=== PATIENT | female | born 1970 | race Caucasian/White ===

== ENCOUNTER → 2018-07-17 08:33 | Outpatient (CLI) | payer OTHER, SELFPAY ==
--- NOTE | 2018-07-17 | DI.MRI.S_ITS ---
PROCEDURE: MR LUMBAR SPINE WO CON INDICATIONS: LOW BACK PAIN TECHNIQUE: Noncontrast sagittal T1 spin echo and T2 fast echo, sagittal STIR, axial T1 and T2 fast spin echo through the lumbar spine. In cases with scoliosis, additional coronal T2 fast spin echo may be performed. COMPARISON: None. FINDINGS: Image quality: Excellent. Alignment and Curvature: There is normal bony alignment. Bone Marrow: Marrow is of normal overall signal. No acute vertebral body compression fractures. Spinal Cord: Conus medullaris terminates at the L1 level. Visualized cord demonstrates normal signal and size. Paraspinous Soft Tissues: No paravertebral masses. L1-L2: Slight loss of the signal. No central stenosis. No neural foraminal narrowing. No neural impingement. L2-L3: Normal appearance. L3-L4: Loss of the signal. Mild, diffuse disc bulge. No central stenosis. No neural foraminal narrowing. No neural impingement. Focal high intensity zone within the posterior annulus compatible with a fissure. L4-L5: Loss of disc space signal. Mild, diffuse disc bulge. Mild bilateral facet hypertrophy. No central stenosis. Mild bilateral neural foraminal narrowing. No neural impingement. Focal high intensity zone is noted in the posterior annulus compatible with a fissure. L5-S1: Loss of disc signal. Mild, diffuse disc bulge. Large right central disc extrusion. Extruded disc material impinges upon the traversing right S1 nerve root. Mild narrowing of the central canal. Mild bilateral facet hypertrophy. Mild bilateral neural foraminal narrowing. IMPRESSION: 1. Right central L5-S1 disc extrusion which impinges upon the right S1 nerve root. 2. Multilevel degenerative disease 3. Multilevel facet arthropathy. 4. Mild L5-S1 central canal narrowing. 5. Mild bilateral L4-L5 and L5-S1 neural foraminal narrowing. 6. L3-L4 and L4-L5 disc annulus fissures. Dictated by: Ana Blas MD, PhD on 07/17/2018 at 13:47 Approved by: Ana Blas MD, PhD on 07/17/2018 at 13:51
== END ==
PROVIDERS: PCP Family Medicine Geriatric Medicine; Visit Provider Physician Assistant
DX: M51.27 Other intervertebral disc displacement, lumbosacral region (principal); M51.36 Other intervertebral disc degeneration, lumbar region; M47.816 Spondylosis without myelopathy or radiculopathy, lumbar region; M47.817 Spondylosis without myelopathy or radiculopathy, lumbosacral region; M48.061 Spinal stenosis, lumbar region without neurogenic claudication; M48.07 Spinal stenosis, lumbosacral region
CPT/HCPCS: 72148

== ENCOUNTER → 2018-10-22 08:34 | Outpatient (CLI) | payer OTHER, SELFPAY ==
--- NOTE | 2018-10-22 | DI.MRI.S_ITS ---
PROCEDURE: MR LUMBAR SPINE WO/W CON INDICATIONS: Intervertebral disc disorders with radiculopathy TECHNIQUE: Noncontrast sagittal T1 spin echo and T2 fast spin echo, sagittal STIR, axial T1 and T2 fast spin echo through the lumbar spine. In cases with scoliosis, additional coronal T2 fast spin echo may be performed. After the administration of contrast, sagittal and axial T1 spin echo with fat saturation through the lumbar spine. COMPARISON: [facility], , MR LUMBAR SPINE WO CON, 07/17/2018, 8:47. FINDINGS: Image quality: Excellent. Alignment and curvature: There is normal bony alignment. Marrow: Marrow is of normal overall signal. No acute vertebral body compression fractures. No suspicious marrow enhancement. Spinal cord: Conus medullaris terminates at the L1 level. Visualized spinal cord demonstrates normal signal, without suspicious enhancement. Paraspinous soft tissues: No paravertebral masses or abnormal enhancement. T12-L1: Normal appearance. L1-L2: Normal appearance. L2-L3: Normal appearance. L3-L4: The disc height and disc signal are relatively well-preserved. Moderate disc bulge is seen, which is eccentric to the right. Mild facet joint hypertrophy is seen. Mild bilateral neural foraminal narrowing is seen, right worse than left. Minimal central canal narrowing is seen. When comparison is made with the prior examination, these findings are similar. L4-L5: The disc height is well-preserved. Loss of disc signal is seen at this level. There is a focal annular fissure seen posteriorly. Moderate generalized disc bulge is seen. [id number] facet hypertrophy is seen. There is moderate right-sided and mild to moderate left-sided neural foraminal narrowing seen. Mild central canal narrowing is seen. Stable from the prior study. L5-S1: Interval right hemilaminectomy changes are seen. Mild loss of disc height is seen. Loss of disc signal is seen. Mild to moderate disc bulge is seen. [id number] facet hypertrophy is seen. Within the region of the right partial discectomy, there is abnormal soft tissue seen. The majority of this tissue is enhancing, with a small focus of nonenhancing material seen along the anterior aspect of the material, as on series 8 image 30 measuring 4 mm. Moderate central canal narrowing is seen. There is moderate bilateral neural foraminal narrowing seen, right worse than left. IMPRESSION: Interval right partial discectomy with right hemilaminectomy. Within the region of the discectomy, there is enhancing throughout, which is largely attributed to scar, although there is a 4 L focus of residual/recurrent disc extrusion seen. Dictated by: Hakeem Garcia M.D. on 10/22/2018 at 10:05 Approved by: Hakeem Garcia M.D. on 10/22/2018 at 10:11
== END ==
PROVIDERS: PCP Family Medicine; Visit Provider Neurological Surgery
DX: M51.17 Intervertebral disc disorders with radiculopathy, lumbosacral region (principal); M51.16 Intervertebral disc disorders with radiculopathy, lumbar region; M48.07 Spinal stenosis, lumbosacral region; M48.061 Spinal stenosis, lumbar region without neurogenic claudication
CPT/HCPCS: 72158; A9579

== ENCOUNTER → 2018-11-24 06:46 | Outpatient (CLI) | payer OTHER, SELFPAY ==
--- NOTE | 2018-11-24 | DI.MRI.S_ITS ---
PROCEDURE: MR LUMBAR SPINE WO/W CON INDICATIONS: WORSENING BACK PAIN TECHNIQUE: Noncontrast sagittal T1 spin echo and T2 fast spin echo, sagittal STIR, axial T1 and T2 fast spin echo through the lumbar spine. In cases with scoliosis, additional coronal T2 fast spin echo may be performed. After the administration of contrast, sagittal and axial T1 spin echo with fat saturation through the lumbar spine. COMPARISON: [facility], MR, MR LUMBAR SPINE WO CON, 07/17/2018, 8:47. [facility], MR, MR LUMBAR SPINE WO/W CON, 10/22/2018, 8:53. FINDINGS: Image quality: Excellent. Alignment and curvature: There is normal bony alignment. Marrow: Marrow is of normal overall signal. No acute vertebral body compression fractures. No suspicious marrow enhancement. Spinal cord: Conus medullaris terminates at the L1 level. Visualized spinal cord demonstrates normal signal, without suspicious enhancement. Paraspinous soft tissues: No paravertebral masses or abnormal enhancement. L1-L2: Mild loss of disc signal. No significant posterior disc bulge. No central canal or foramina stenosis. L2-L3: Normal appearance. L3-L4: Preserved disc height. Mild disc desiccation. There is diffuse posterior disc bulge. A small annular fissure is present posterior centrally. The central canal is patent. No foraminal stenosis. No definitive nerve root impingement. L4-L5: Mild loss of disc height and disc desiccation. There is diffuse posterior disc bulge with disc osteophyte complex. There is posterior central annular fissure. Mild bilateral facet arthropathy. The central canal is mildly narrowed. Mild bilateral foraminal stenosis, unchanged. No definitive nerve root impingement. L5-S1: Post surgical changes related to discectomy and right hemilaminectomy. There is amorphous soft tissue with increased T2 signal and enhancement consistent with granulation tissue secondary to post surgical scarring. Within the right lateral recess, there is a sequestered disc fragment measuring 5 x 9 x 11 mm demonstrating peripheral enhancement. There is severe narrowing of the right lateral recess and impingement of the right S1 nerve root. A 4 x 7 x 6 mm oval shaped structure is seen just right of midline above the L5-S1 disc within the anterior spinal canal adjacent to the left L5 nerve root. It demonstrates hyperintense T1 and T2 signal, and no definitive post contrast enhancement. This may be a small nerve root sleeve cyst but a small sequestered disc fragment is not excluded. There is mild loss of disc height and moderate disc desiccation. There is diffuse posterior disc bulge. Mild bilateral facet arthropathy. Mild bilateral facet arthropathy. The central canal is mildly narrowed. Mild to moderate subarticular bilateral foraminal stenosis. IMPRESSION: 1. Within the right lateral recess, there is a sequestered residual or recurrent disc fragment measuring 5 x 9 x 11 mm demonstrating peripheral enhancement, which causes severe narrowing of the right lateral recess and impingement of the right S1 nerve root. 2. A 4 x 7 x 6 mm oval shaped structure is seen just right of midline above the L5-S1 disc within the anterior spinal canal. It demonstrates hyperintense T1 and T2 signal, and no definitive enhancement. This may be a small nerve root sleeve cyst or a small sequestered disc fragment. 3. Post surgical changes related to discectomy and right hemilaminectomy at L5-S1 are again noted. There is amorphous soft tissue with increased T2 signal and enhancement consistent with granulation tissue secondary to post surgical scarring. Dictated by: Kel Caballero M.D. on 11/24/2018 at 10:02 Approved by: Kel Caballero M.D. on 11/24/2018 at 10:35
== END ==
PROVIDERS: PCP Family Medicine; Visit Provider Neurological Surgery
DX: M54.5 Low back pain (principal)
CPT/HCPCS: 72158

== ENCOUNTER → 2023-07-21 09:02 | Outpatient (CLI) | payer OTHER, SELFPAY ==
--- NOTE | 2023-07-21 09:24 | DI.MRI.S_ITS ---
PROCEDURE: MR SHOULDER RT WO CON INDICATIONS: Pain in right shoulder TECHNIQUE: Noncontrast oblique coronal T2 fast spin echo with fat saturation, oblique sagittal T1 spin echo and T2 fast spin echo with fat saturation, axial T1 spin echo and T2 fast spin echo with fat saturation through the shoulder. COMPARISON: None. FINDINGS: Image quality: Excellent. Rotator cuff: Low-grade articular and bursal surface partial thickness tear involving distal supraspinatus at its insertion on the humeral head extending to musculotendinous junction. Distal infraspinatus tendinosis is noted. The subscapularis tendon is intact. No full-thickness rotator cuff tendon rupture. Sagittal images demonstrate no significant rotator cuff muscle atrophy. Bones and bursae: No bone marrow contusions or fractures. Mild to moderate acromioclavicular joint osteoarthritic changes are seen with joint space narrowing and downward osteophyte formation depressing the musculotendinous junction of supraspinatus. Moderate glenohumeral joint osteoarthritic changes also seen with significant joint space narrowing, subchondral sclerosis and subcortical cystic changes. The acromion demonstrates conventional anatomy, without an os acromiale. Small to moderate amount of joint effusion and subacromial subdeltoid bursal fluid is seen. No gross loose bodies. Capsule and soft tissues: There is signal abnormality and contour irregularity involving superior anterior labrum at 12 to 1 o'clock position suggestive of superior anterior labral tear. The long head of the biceps tendon demonstrates normal location and morphology. The rotator interval appears normal, without fibrosis. The coracohumeral ligament is normal in thickness. IMPRESSION: 1. Low-grade articular and bursal surface partial thickness tear involving distal supraspinatus extending to musculotendinous junction. Distal infraspinatus tendinosis. No full-thickness rotator cuff tendon rupture. No significant rotator cuff muscle atrophy. 2. [id number]-um-[id number] acromioclavicular joint osteoarthritis. Moderate glenohumeral joint osteoarthritis. No fracture or dislocation. Small to moderate amount of joint effusion and subacromial subdeltoid bursal fluid. No gross loose bodies. 3. Suggestion of focal labral tear at 12 to 1 o'clock position. Dictated by: Jose Traylor M.D. on 07/21/2023 at 10:44 Approved by: Jose Traylor M.D. on 07/21/2023 at 10:48
== END ==
PROVIDERS: PCP Nurse Practitioner Family; Referring Provider Nurse Practitioner Family; Visit Provider Nurse Practitioner Family
DX: M75.111 Incomplete rotator cuff tear or rupture of right shoulder, not specified as traumatic (principal); M19.011 Primary osteoarthritis, right shoulder; M25.511 Pain in right shoulder; M25.411 Effusion, right shoulder; Z86.006 Personal history of melanoma in-situ
CPT/HCPCS: 73221